=== PATIENT | female | born 1985 | race Two or more races ===

== ENCOUNTER 2020-08-15 08:40 | Outpatient (CLI) | payer OTHER | END 2020-08-15 09:40 | disposition home or self-care (01) | LOC: OFIC 805 08:40 | PROVIDERS: ATTEND Otolaryngology Otology & Neurotology | DX: K21.9 Gastro-esophageal reflux disease without esophagitis (principal); J30.89 Other allergic rhinitis; J31.2 Chronic pharyngitis; J34.89 Other specified disorders of nose and nasal sinuses ==